=== PATIENT | female | born 1940 | race Caucasian/White ===

== ENCOUNTER → 2024-11-12 11:36 | Outpatient (REF) | payer MEDICARE, OTHER, SELFPAY ==
[2024-11-12 15:33] LABS: Erythrocyte Sed Rate 26 mm/hour (0-20)
[2024-11-12 15:48] LABS: % Basophils 0.5 % (0-2); % Immature Granulocytes 0.2 % (0-0.5); % Lymphocytes 33.2 % (20.5-51.1); % Monocytes 9.2 % (1.7-9.3); % Neutrophils 53.9 % (42.2-75.2); Absolute Eosinophils 0.2 10^3/uL (0-0.7); Absolute Monocytes 0.6 10^3/uL (0.1-0.6); Absolute Neutrophils 3.2 10^3/uL (1.4-6.5); Hematocrit 35.6 % (37.0-47.0); Hemoglobin 11.6 g/dL (12.0-16.0); Mean Corp Hgb Conc. 32.6 g/dL (33.0-37.0); Mean Corpuscular Hgb 29.6 pg (27.0-31.0); Mean Corpuscular Volume 90.8 fL (81.0-99.0); Mean Platelet Volume 12.5 fL (7.4-10.4); Nucleated Red Blood Cells % 0 %; Platelet Count 170 10^3/uL (130-400); Red Blood Cell Count 3.92 10^6/uL (4.20-5.40); Red Cell Dist. Width 13.9 % (11.5-14.5)
[2024-11-12 15:54] LABS: C-Reactive Protein < 5.00 mg/L (0.0-10.00)
[2024-11-12 16:26] LABS: ALT (SGPT) 21 U/L (0-35); AST (SGOT) 31 U/L (14-36); Albumin 3.9 g/dl (3.5-5.0); Alkaline Phosphatase 59 U/L (38-126); Blood Urea Nitrogen 18 mg/dl (7-17); Calcium 9.3 mg/dl (8.4-10.2); Carbon Dioxide 27 mmol/L (22-30); Chloride 102 mmol/L (98-107); Glucose 95 mg/dl (70-99); Potassium 4.2 mmol/L (3.5-5.1); Sodium 139 mmol/L (135-145); Total Bilirubin 0.6 mg/dl (0.2-1.3); Total Protein 6.4 g/dl (6.3-8.2); eGFR > 60.00
== END ==
LOC: HWLAB 11:36
PROVIDERS: ATTENDING PHYSICIAN Internal Medicine Rheumatology; FAMILY PHYSICIAN Internal Medicine
DX: L92.9 Granulomatous disorder of the skin and subcutaneous tissue, unspecified (principal); M31.30 Wegener's granulomatosis without renal involvement; M79.671 Pain in right foot; M81.0 Age-related osteoporosis without current pathological fracture; R05.3 Chronic cough; Z51.81 Encounter for therapeutic drug level monitoring
CPT/HCPCS: 36415; 80053; 83516; 85025; 85652; 86140

== ENCOUNTER 2024-11-25 06:23 | Day surgery (SDC) | payer MEDICARE, OTHER, SELFPAY | END 2024-11-25 12:04 | disposition home or self-care (01) | LOC: GI 06:23 | PROVIDERS: ATTENDING PHYSICIAN Specialist | DX: K22.89 Other specified disease of esophagus (principal); K44.9 Diaphragmatic hernia without obstruction or gangrene; K31.A11 Gastric intestinal metaplasia without dysplasia, involving the antrum; K31.89 Other diseases of stomach and duodenum; R11.2 Nausea with vomiting, unspecified; Z87.19 Personal history of other diseases of the digestive system | CPT/HCPCS: 43239; 88305; 88341; 88342 ==

== ENCOUNTER → 2025-04-21 10:24 | Outpatient (REF) | payer MEDICARE, OTHER, SELFPAY | LOC: HWRAD 10:24 | PROVIDERS: ATTENDING PHYSICIAN Internal Medicine Rheumatology; FAMILY PHYSICIAN Internal Medicine | DX: M81.0 Age-related osteoporosis without current pathological fracture (principal) | CPT/HCPCS: 77080 ==